=== PATIENT | male | born 1955 | race Caucasian/White ===

== ENCOUNTER → 2017-11-04 | Outpatient (CLI) | payer MEDICARE, BC ==
[~2017-11-04] MED LIST: ANAS1TAB PO; ATOR20TA PO; BUPIVAC MPF-EPI 0.5%-1:200000 30 ML VIAL. ONE; CARB200T PO; DICL75TA PO; ESOM40CA PO; LISI-338 PO; MULT1TAB52 PO
[2017-11-04 13:26] VITALS: BP 117/64
--- NOTE | 2017-11-04 14:00 | PDOC ---
BRIEF OPERATIVE NOTE Date: Nov 04, 2017 Pre-Op Diagnosis cyst upper left back Post-Op Diagnosis same Procedure Performed excision Surgeon Giorgio Anesthesia Type: Local Blood Loss minimal Specimens Obtained skin and subcutaneous tissue, left upper back 4x2x2 cm Additional Remarks Wk # [id number] ESTHER SIMENTAL MD Nov 04, 2017 13:59
--- NOTE | 2017-11-04 14:12 | OP ---
DATE OF SURGERY: 11/04/2017 PREOPERATIVE DIAGNOSIS: Cyst, left upper back. POSTOPERATIVE DIAGNOSIS: Cyst, left upper back. PROCEDURE: Excision of cyst, left upper back.. SURGEON: Esther Simental MD ANESTHESIA: Local. SPECIMEN: Skin and subcutaneous tissue, left upper back, 4 x 2 x 2 cm. DESCRIPTION OF PROCEDURE: The patient taken to the minor room and placed in the right lateral decubitus position, left upper back, prepped and draped in usual sterile fashion. The elliptical incision outlined in the preoperative area was infiltrated with local anesthetic, incised and the skin and underlying process removed intact. Hemostasis with cautery. Wound closed with interrupted inverted 3-0 Vicryl in the subcutaneous tissue. Subcuticular 4-0 Monocryl with Steri-Strips for the skin. Sterile dressing applied. The patient tolerated well. Follow up next week. ESTHER SIMENTAL MD DR: XIANG/aleksandra JOB#: [id number] / [id number]
--- NOTE | 2017-11-09 07:17 | PATHOLOGY ---
[facility] Accession Number: [id number] . 01 Material submitted: . SKIN AND SUBCUTANEOUS TISSUE LEFT UPPER BACK . 01 Clinical history: . Sebaceous cyst. . 02 Diagnosis: Skin and subcutaneous tissue, left upper back: - Epidermal inclusion cyst. LB/11/08/2017 . 02 Comment: There is no evidence of malignancy. (JPM:db; 11/08/2017) . 02 Electronically signed: . Fer Nino MD, Pathologist NPI- [id number] . 01 Gross description: . Received in formalin labeled "Yamileth Simon, skin and subcutaneous tissue left upper back" is an unoriented excision of skin and underlying soft tissue which has the overall dimensions 4.0 x 2.3 x 1.7 cm. The skin measures 3.5 x 1.3 x 0.3 cm, and is grossly unremarkable. Upon sectioning, the deep surface displays a contreras-white cystic structure measuring 2.2 x 1.6 x 1.5 cm. The cystic structure contains contreras-yellow grumous material. Structural Technician sections are submitted in cassettes A1-A2. ([facility]; 11/07/2017) SY/SY . 02 Pathologist provided ICD-10: L72.0 . 02 CPT . 036762 Performed at: 01 [facility] [address], [place] [id number] MD Henry Tejada MD Phone: [phone] Performed at: 02 [facility] [address] [place], [place] [id number] MD Fer Nino MD Phone: [phone]
== END ==
LOC: SURG 12:36
PROVIDERS: ATTEND Surgery
DX: L72.3 Sebaceous cyst (principal); I25.10 Atherosclerotic heart disease of native coronary artery without angina pectoris; I10 Essential (primary) hypertension; K21.9 Gastro-esophageal reflux disease without esophagitis; Z87.39 Personal history of other diseases of the musculoskeletal system and connective tissue; Z72.89 Other problems related to lifestyle; Z98.890 Other specified postprocedural states; Z96.653 Presence of artificial knee joint, bilateral
CPT/HCPCS: 11406; J3490